=== PATIENT | male | born 1955 | race Caucasian/White ===

== ENCOUNTER 2020-06-12 15:12 | Emergency (ER) | payer OTHER ==
[~2020-06-12] VITALS: Ht 170.2 cm; Wt 133.4 kg
[2020-06-12] MEDS ORDERED: ASPIRIN 81 MG CHEW TAB PO ONE (16:15)
[2020-06-12 16:47] LABS: BASOPHILS % 0.8 % (0.0-1.0); EOSINOPHILS # (AUTO) 0.2 (0.0-0.4); EOSINOPHILS % 3.3 % (0.0-6.0); HEMATOCRIT 45.9 % (38.2-49.6); HEMOGLOBIN 15.6 g/dL (14.0-18.0); LYMPHOCYTES # (AUTO) 1.2 (1.0-3.2); LYMPHOCYTES % 22.9 % (18.0-39.1); MEAN CORPUSCULAR VOLUME 94.1 fL (81-99); MONOCYTES # (AUTO) 0.7 (0.2-0.8); MONOCYTES % 12.7 % (4.4-11.3); NEUTROPHILS # (AUTO) 3.1 (2.1-6.9); NEUTROPHILS % 59.9 % (38.7-80.0); PLATELET COUNT 147 x10e3/uL (140-360); RED BLOOD COUNT 4.88 x10e6/uL (4.3-5.7); RED CELL DISTRIBUTION WIDTH 13.7 % (11.7-14.4)
[2020-06-12 17:06] LABS: ALANINE AMINOTRANSFERASE 18 IU/L (0-55); ALBUMIN 3.5 g/dL (3.5-5.0); ALBUMIN/GLOBULIN RATIO 1.1 (0.8-2.0); ALKALINE PHOSPHATASE 81 IU/L (40-150); ANION GAP 13.4 mmol/L (8-16); BLOOD UREA NITROGEN 15 mg/dL (7-26); BUN/CREATININE RATIO 14 (6-25); CALCIUM 8.6 mg/dL (8.4-10.2); CARBON DIOXIDE 31 mmol/L (22-29); CHLORIDE 101 mmol/L (98-107); CREATINE KINASE 59 IU/L (30-200); CREATININE, SERUM 1.04 mg/dL (0.72-1.25); EST GLOMERULAR FILTRATION RATE > 60 ML/MIN (60-); GLUCOSE 113 mg/dL (74-118); POTASSIUM 3.4 mmol/L (3.5-5.1); SODIUM 142 mmol/L (136-145)
[2020-06-12 17:19] LABS: INR 0.9; PARTIAL THROMBOPLASTIN TIME 26.9 seconds (23.8-35.5); PROTHROMBIN TIME 12.7 seconds (11.9-14.5)
[2020-06-12] MEDS ORDERED: RIVAROXABAN 15 MG TABLET PO ONE ×2 (17:58→18:00)
== END 2020-06-12 18:02 | disposition home or self-care (01) ==
LOC: ER 17:51
DX: M79.661 Pain in right lower leg (principal); I82.461 Acute embolism and thrombosis of right calf muscular vein; I10 Essential (primary) hypertension; E78.5 Hyperlipidemia, unspecified; F32.9 Major depressive disorder, single episode, unspecified; Z98.84 Bariatric surgery status
CPT/HCPCS: 36415; 80053; 82550; 82553; 83880; 84484; 85025; 85610; 85730; 93971; 99284

== ENCOUNTER 2021-03-19 10:04 | Emergency (ER) | payer BC, OTHER ==
[~2021-03-19] VITALS: Ht 170.2 cm; Wt 133.4 kg
[2021-03-19] MEDS ORDERED: DONNATAL/LIDOCAINE/MAALOX 30 ML SUSP PO STA (10:27)
[2021-03-19 10:35] LABS: BASOPHILS # (AUTO) 0.1 (0.0-0.1); BASOPHILS % 0.8 % (0.0-1.0); EOSINOPHILS # (AUTO) 0.1 (0.0-0.4); HEMATOCRIT 48.4 % (38.2-49.6); HEMOGLOBIN 15.9 g/dL (14.0-18.0); LYMPHOCYTES # (AUTO) 1.3 (1.0-3.2); LYMPHOCYTES % 20.8 % (18.0-39.1); MEAN CORPUSCULAR HGB CONC 32.9 g/dL (31-35); MEAN CORPUSCULAR VOLUME 97.4 fL (81-99); MONOCYTES # (AUTO) 0.6 (0.2-0.8); MONOCYTES % 9.8 % (4.4-11.3); NEUTROPHILS # (AUTO) 4.1 (2.1-6.9); NEUTROPHILS % 67.4 % (38.7-80.0); PLATELET COUNT 152 x10e3/uL (140-360); RED BLOOD COUNT 4.97 x10e6/uL (4.3-5.7); RED CELL DISTRIBUTION WIDTH 14.1 % (11.7-14.4)
[2021-03-19 10:56] LABS: ALBUMIN 3.4 g/dL (3.5-5.0); ANION GAP 13.6 mmol/L (8-16); CREATININE, SERUM 1.11 mg/dL (0.72-1.25); POTASSIUM 3.6 mmol/L (3.5-5.1)
[2021-03-19 11:44] VITALS: BP 112/80
== END 2021-03-19 11:46 | disposition home or self-care (01) ==
LOC: ER 10:16
DX: R10.13 Epigastric pain (principal); R11.0 Nausea; I10 Essential (primary) hypertension; E78.5 Hyperlipidemia, unspecified; F32.A Depression, unspecified; Z87.442 Personal history of urinary calculi; Z98.84 Bariatric surgery status
CPT/HCPCS: 36415; 71045; 80053; 83690; 84484; 85025; 93005; 99284; C9113